=== PATIENT | female | born 1975 | race Caucasian/White ===

== ENCOUNTER 2022-01-23 14:14 | Outpatient (CLI) | payer OTHER, SELFPAY ==
[2022-01-23 21:46] LABS: Chloride* 106 mmol/L (96-114)
[2022-01-23 21:47] LABS: Potassium* 4.7 mmol/L (3.6-5.1); Sodium* 139 mmol/L (135-149)
[2022-01-23 21:49] LABS: Creatinine* 0.9 mg/dL (0.5-1.5); Estimated Glomerular Filt Rate 79 ml/min
[2022-01-23 21:50] LABS: Blood Urea Nitrogen* 15 mg/dL (5-24); Calcium* 9.3 mg/dL (8.4-10.6); Carbon Dioxide* 28 mmol/L (20-32); Glucose* 138 mg/dL (60-115)
== END 2022-01-23 14:15 | disposition home or self-care (01) ==
LOC: LKVREF 14:15
PROVIDERS: PCP Emergency Medicine; Visit Provider Emergency Medicine
DX: Z01.818 Encounter for other preprocedural examination (principal); K44.9 Diaphragmatic hernia without obstruction or gangrene; G47.33 Obstructive sleep apnea (adult) (pediatric); J45.40 Moderate persistent asthma, uncomplicated; M79.7 Fibromyalgia
CPT/HCPCS: 80048